=== PATIENT | female | born 1950 | race Hispanic/Latino ===

== ENCOUNTER → 2018-01-01 | Outpatient (CLI) | payer OTHER ==
[~2018-01-01] MED LIST: ASPI-1197 PO; CALC-866 PO; DULO60CA63 PO; GABA-531 PO; GLIM1TAB2 PO; HYDR12.530 PO; METF500T6 PO; METO-408 PO; SIMV40TA5 PO; TIZA2TAB4 PO; VITA400C19 PO; VITAMIN B12 PO
== END | disposition home or self-care (01) ==
LOC: RAH 08:25
PROVIDERS: ATTEND Internal Medicine Gastroenterology
DX: K76.0 Fatty (change of) liver, not elsewhere classified (principal); K43.9 Ventral hernia without obstruction or gangrene; Z90.49 Acquired absence of other specified parts of digestive tract
CPT/HCPCS: 76700

== ENCOUNTER 2018-01-03 06:54 | Day surgery (SDC) | payer OTHER ==
[~2018-01-03] VITALS: Ht 162.6 cm; Wt 93.7 kg
[~2018-01-03 06:54] MED LIST changes: +SODIUM CHLORIDE 0.9% 1000ML 1,000 ML IV ONE
[2018-01-03 07:27] VITALS: BP 144/60
[2018-01-03] MEDS ORDERED: PROPOFOL 10 MG/ML 20ML VIAL IV ONE (07:52)
== END 2018-01-03 08:45 | disposition home or self-care (01) ==
LOC: DAH 06:54
PROVIDERS: ATTEND Internal Medicine Gastroenterology
DX: K22.2 Esophageal obstruction (principal); Z98.84 Bariatric surgery status; Z68.37 Body mass index [BMI] 37.0-37.9, adult; Z79.84 Long term (current) use of oral hypoglycemic drugs; Z79.899 Other long term (current) drug therapy; F50.89 Other specified eating disorder; Z86.010 Personal history of colon polyps; I10 Essential (primary) hypertension; E78.5 Hyperlipidemia, unspecified; E11.9 Type 2 diabetes mellitus without complications; I63.9 Cerebral infarction, unspecified; M19.90 Unspecified osteoarthritis, unspecified site; F32.9 Major depressive disorder, single episode, unspecified; G47.33 Obstructive sleep apnea (adult) (pediatric); I25.10 Atherosclerotic heart disease of native coronary artery without angina pectoris; Z98.890 Other specified postprocedural states; Z90.49 Acquired absence of other specified parts of digestive tract; Z90.710 Acquired absence of both cervix and uterus; Z82.49 Family history of ischemic heart disease and other diseases of the circulatory system; Z83.3 Family history of diabetes mellitus; Z80.0 Family history of malignant neoplasm of digestive organs; Z95.1 Presence of aortocoronary bypass graft
CPT/HCPCS: 43248; 82948 ×2; 93005; A4606; J2704; J7030

== ENCOUNTER → 2018-01-18 | Outpatient (CLI) | payer OTHER ==
[~2018-01-18] MED LIST changes: -SODIUM CHLORIDE 0.9% 1000ML 1,000 ML IV ONE
== END | disposition home or self-care (01) ==
LOC: EDSTATUS 08:50 → OIH 08:57
PROVIDERS: ATTEND Internal Medicine Cardiovascular Disease
DX: I71.4 Abdominal aortic aneurysm, without rupture (principal)
CPT/HCPCS: 93978

== ENCOUNTER 2019-01-07 07:18 | Observation (INO) | payer OTHER ==
[2019-01-04 12:41] LABS: BASOPHILS % (AUTO) 0.8 % (0.0-5.0); HEMATOCRIT 42.9 % (36-48); LYMPHOCYTES % (AUTO) 33.6 % (21.0-51.0); MEAN CORPUSCULAR HEMOGLOBIN 29.5 pg (27.0-33.0); MEAN CORPUSCULAR HGB CONC 34.1 g/dL (32.0-36.0); MEAN CORPUSCULAR VOLUME 86.5 fL (79-99); MONOCYTES % (AUTO) 7.6 % (3.0-13.0); PLATELET COUNT (AUTO) 223 K/uL (130-400); RED BLOOD CELL COUNT(AUTO) 4.96 MIL/uL (4.00-5.50); WHITE BLOOD COUNT (AUTO) 7.6 K/uL (4.8-10.8)
[2019-01-04 12:48] VITALS: BP 142/78
[2019-01-04 13:18] LABS: CREATININE 0.7 mg/dL (0.5-1.5); POTASSIUM 4.8 mmol/L (3.5-5.1)
[2019-01-04] MEDS: CEFAZOLIN SODIUM 1 GM VIAL IVP SCH (13:45)
[2019-01-05] MEDS: CEFAZOLIN SODIUM 1 GM VIAL IVP SCH (13:45)
[2019-01-06] MEDS: CEFAZOLIN SODIUM 1 GM VIAL IVP SCH (13:45)
[~2019-01-07] VITALS: Ht 165.1 cm; Wt 94.3 kg
[2019-01-07] VITALS (27 sets, daily range): BP systolic 107–148; BP diastolic 56–78
[~2019-01-07 07:18] MED LIST changes: +CA C1TAB74 PO; -CALC-866 PO; +CYAN1TAB44 PO; +FERS325 PO; +LOSA25TA41 PO; +METF-444 PO; -METF500T6 PO; -TIZA2TAB4 PO; -VITAMIN B12 PO
[2019-01-07] MEDS ORDERED: SODIUM CHLORIDE 0.9% 1000ML 1,000 ML IV ONE ×2 (08:02→08:03)
[2019-01-07] MEDS ORDERED: LIDOCAINE PF 2% 5ML ABBOJECT ONE ×2 (08:29→08:30)
[2019-01-07] MEDS ORDERED: ROCURONIUM 10MG/1ML SYR 10 MG/ML ML ONE (08:29)
[2019-01-07] MEDS ORDERED: SUCCINYLCHOLINE 200MG/10ML SYR ONE (08:29)
[2019-01-07] MEDS ORDERED: DEXAMETHASONE SOD PHOSPHATE 10MG/ML 1ML VIAL ONE (08:29)
[2019-01-07] MEDS ORDERED: MIDAZOLAM HCL 1 MG/ML 2ML VIAL ONE (08:29)
[2019-01-07] MEDS ORDERED: ONDANSETRON HCL 4 MG/2 ML VIAL ONE (08:29)
[2019-01-07] MEDS ORDERED: NEOSTIGMINE 5MG/5ML SYR IV ONE (08:29)
[2019-01-07] MEDS ORDERED: FENTANYL CITRATE PF 50 MCG/1 ML 2ML VIAL ONE (08:29)
[2019-01-07] MEDS ORDERED: GLYCOPYRROLATE 1 MG/5 ML SYRINGE ONE (08:29)
[2019-01-07] MEDS ORDERED: PROPOFOL 10 MG/ML 20ML VIAL IV ONE (08:29)
[2019-01-07] MEDS ORDERED: EPHEDRINE SULFATE 50 MG/ML AMPULE ONE (09:34)
[2019-01-07] MEDS ORDERED: PHENYLEPHRINE HCL 10 MG/ML 1ML VIAL IV ONE (09:51)
[2019-01-07] MEDS ORDERED: MEPERIDINE-PF 25 MG/ML SYG ONE ×3 (10:13→10:44)
[2019-01-07] MEDS ORDERED: PROMETHAZINE HCL 25 MG/ML 1ML AMPULE IM ONE (10:44)
[2019-01-07] MEDS ORDERED: KETOROLAC TROMETHAMINE 30MG/ML ONE (11:10)
[2019-01-07] MEDS: CEFAZOLIN SODIUM 1 GM VIAL IVP SCH ×3 (12:57→22:47)
[2019-01-07] MEDS ORDERED: ONDANSETRON HCL 4 MG/2 ML VIAL IVP PRN (13:15)
[2019-01-07] MEDS ORDERED: MORPHINE SULFATE 4 MG/1ML SYG IV PRN (13:15)
[2019-01-07] MEDS: LACTATED RINGERS 1000ML 1,000 ML IV SCH (14:33)
[2019-01-07] MEDS: METFORMIN HCL 500 MG TABLET PO SCH (16:23)
[2019-01-07] MEDS: GABAPENTIN 300 MG CAPSULE PO SCH (20:18)
[2019-01-07] MEDS: VITAMIN E 400 UNIT CAPSULE PO SCH (20:18)
[2019-01-07] MEDS: ACETAMINOPHEN-CODEINE 300/30MG TAB PO PRN (20:19)
[2019-01-07] MEDS: SIMVASTATIN 20 MG TABLET PO SCH (20:23)
[2019-01-07] MEDS: **HM** TOPROL XL 25MG PO SCH (20:25)
[2019-01-08] VITALS (8 sets, daily range): BP systolic 86–133; BP diastolic 58–77
[2019-01-08] MEDS: ACETAMINOPHEN-CODEINE 300/30MG TAB PO PRN ×4 (01:48→21:44)
[2019-01-08] MEDS: LACTATED RINGERS 1000ML 1,000 ML IV SCH ×3 (01:49→17:31)
[2019-01-08 04:54] LABS: HEMATOCRIT 36.7 % (36-48); MEAN CORPUSCULAR HEMOGLOBIN 29.4 pg (27.0-33.0); MEAN CORPUSCULAR HGB CONC 33.7 g/dL (32.0-36.0); MEAN CORPUSCULAR VOLUME 87.2 fL (79-99); PLATELET COUNT (AUTO) 182 K/uL (130-400); RED CELL DISTRIBUTION WIDTH 14.2 % (11.0-15.5); WHITE BLOOD COUNT (AUTO) 9.8 K/uL (4.8-10.8)
[2019-01-08] MEDS: **HM** TOPROL XL 25MG PO SCH ×3 (09:00→20:08)
[2019-01-08] MEDS: [UNRECOGNIZED DRUG - OTHER] PO SCH ×2 (09:00→14:39)
[2019-01-08] MEDS: VITAMIN E 400 UNIT CAPSULE PO SCH ×2 (09:00→20:08)
[2019-01-08] MEDS: VIT B12 FOLIC ACID PO SCH ×3 (09:00→14:39)
[2019-01-08] MEDS: METFORMIN HCL 500 MG TABLET PO SCH ×2 (09:02→17:17)
[2019-01-08] MEDS: DULOXETINE HCL 30 MG CAP PO SCH (09:02)
[2019-01-08] MEDS: HYDROCHLOROTHIAZIDE 25 MG TABLET PO SCH (09:03)
[2019-01-08] MEDS: ASPIRIN 81MG TAB.CHEW PO SCH (09:03)
[2019-01-08] MEDS: GABAPENTIN 300 MG CAPSULE PO SCH ×2 (09:03→20:08)
[2019-01-08] MEDS: GLIMEPIRIDE 2 MG TABLET PO SCH (09:03)
[2019-01-08] MEDS: LOSARTAN 50 MG TABLET PO SCH (09:05)
--- NOTE | 2019-01-08 12:20 | NUR ---
Pt. up ambulating in hallway. Pt. appears in stable condition.
[2019-01-08] MEDS ORDERED: HYDRALAZINE HCL 20 MG/ML VIAL IV SCH (13:41)
[2019-01-08] MEDS ORDERED: HYDRALAZINE HCL 20 MG/ML VIAL ONE (13:43)
[2019-01-08] MEDS: CEFAZOLIN SODIUM 1 GM VIAL IVP SCH (13:45)
--- NOTE | 2019-01-08 14:15 | NUR ---
Paged Dr. Eugenio Biggs regarding A-Fib with RVR.
[2019-01-08 15:54] LABS: CREATININE 0.8 mg/dL (0.5-1.5); MAGNESIUM 1.4 mg/dL (1.80-2.40); POTASSIUM 3.6 mmol/L (3.5-5.1)
[2019-01-08] MEDS ORDERED: DILTIAZEM HCL 5 MG/ML 5 ML VIAL IVP ONE (16:00)
--- NOTE | 2019-01-08 16:00 | NUR ---
IA IA DONE PRIOR TO TRANSFER TO 2ND FLOOR- PT FLUSHED STATES HAS CHEST PRESSURE- HR > 120 , AFIB; PATIENT LIVES Leyda JEFFRIES, USES FLIP, NO MUNIR, NO PROV, PLAN IS HOME Addendum: 01/08/19 at 1841 by CARTER FELICIANO RN Amended: Links added.
[2019-01-08] MEDS ORDERED: DILTIAZEM HCL 5 MG/ML 10 ML VIAL IV ONE ×2 (16:04→16:30)
[2019-01-08] MEDS ORDERED: DILTIAZEM 125MG+100 ML NS 125 ML IV SCH (16:30)
--- NOTE | 2019-01-08 16:47 | NUR ---
Called report to AYANA Osborne to receive pt, pt. to be transferred to room 221, room still being cleaned. Notified Dylon pt. to be started on Cardizem drip once she's down there.
--- NOTE | 2019-01-08 17:25 | NUR ---
Pt. transferred to room 221, care endorsed to Dylon PIÑA, notified him pt. to start Cardizem drip.
[2019-01-08] MEDS: SIMVASTATIN 20 MG TABLET PO SCH (20:08)
[2019-01-09 04:36] VITALS: BP 117/75
[2019-01-09] MEDS: ACETAMINOPHEN-CODEINE 300/30MG TAB PO PRN (06:09)
[2019-01-09 07:52] VITALS: BP 107/52
[2019-01-09] MEDS: HYDROCHLOROTHIAZIDE 25 MG TABLET PO SCH (09:00)
[2019-01-09] MEDS: LOSARTAN 50 MG TABLET PO SCH (09:00)
[2019-01-09] MEDS: METFORMIN HCL 500 MG TABLET PO SCH ×2 (09:07→16:58)
[2019-01-09] MEDS: DULOXETINE HCL 30 MG CAP PO SCH (09:07)
[2019-01-09] MEDS: GABAPENTIN 300 MG CAPSULE PO SCH (09:07)
[2019-01-09] MEDS: ASPIRIN 81MG TAB.CHEW PO SCH (09:07)
[2019-01-09] MEDS: GLIMEPIRIDE 2 MG TABLET PO SCH (09:09)
[2019-01-09] MEDS: LACTATED RINGERS 1000ML 1,000 ML IV SCH (09:19)
[2019-01-09] MEDS: VIT B12 FOLIC ACID PO SCH (09:20)
[2019-01-09] MEDS: **HM** TOPROL XL 25MG PO SCH (09:20)
[2019-01-09] MEDS: [UNRECOGNIZED DRUG - OTHER] PO SCH (09:20)
[2019-01-09] MEDS: VITAMIN E 400 UNIT CAPSULE PO SCH (09:20)
[2019-01-09 11:28] VITALS: BP 121/57
[2019-01-09] MEDS: INSULIN HUMULIN R 100 UNIT/ML 3ML SQ SCH ×2 (11:30→16:30)
[2019-01-09] MEDS ORDERED: DEXTROSE 50%-WATER 50 ML DISP.SYRIN IV PRN (11:30)
[2019-01-09] MEDS ORDERED: GLUCAGON 1MG KIT 1 MG ML IM PRN (11:30)
[2019-01-09 16:39] VITALS: BP 118/57
--- NOTE | 2019-01-09 18:00 | NUR ---
DISCHARGE ATTEMPTED TO INITIATE DISCHARGE INSTRUCTIONS W/PT. NEEDED TO ROUND W/DR PALENCIA ON ANOTHER PT. TELE COURTNEY REMOVED. IV DISCONTINUED @ THIS TIME. WILL RESUME DISCHARGE INSTRUCTIONS WHEN DONE ROUNDING W/.
--- NOTE | 2019-01-09 18:25 | NUR ---
DISCHARGE VERBAL & WRITTEN DISCHARGE INSTRUCTIONS REVIEWED & GIVEN TO PT. QUESTIONS ENCOURAGED & CLARIFIED. PROPER CARE & ACTIVITY AFTER INCISIONAL HERNIA REPAIR REVIEWED. PT TO CALL DR CACERES'S OFFICE TOMORROW TO SETUP HOME HEALTH. PRESCRIBED MEDICATIONS REVIEWED W/PT. PER PT, ALREADY NOTIFIED PRESCRIPTION IS READY TO BE PICKED UP. F/U APPT INFO REVIEWED. PT TO GATHER PERSONAL BELONGINGS. WILL NOTIFY STAFF WHEN READY TO BE TAKEN TO PRIVATE VEHICLE.
--- NOTE | 2019-01-09 19:00 | NUR ---
DISCHARGE PT TAKEN TO PRIVATE VEHICLE VIA WC BY Franky FRANCOIS PCP, ACCOMPANIED BY FAMILY. NO DISTRESS NOTED.
[2019-01-09 19:30] VITALS: BP 129/56
== END 2019-01-09 18:50 | disposition home or self-care (01) ==
LOC: DAH 07:18 → 4AH 07:19 → 2DH 01-08 17:54
PROVIDERS: ADMIT Surgery; ATTEND Surgery
DX: K43.2 Incisional hernia without obstruction or gangrene (principal); L72.3 Sebaceous cyst; I10 Essential (primary) hypertension; I25.10 Atherosclerotic heart disease of native coronary artery without angina pectoris; I48.91 Unspecified atrial fibrillation; K81.0 Acute cholecystitis; Z79.82 Long term (current) use of aspirin; Z79.84 Long term (current) use of oral hypoglycemic drugs; Z79.899 Other long term (current) drug therapy; Z95.1 Presence of aortocoronary bypass graft
CPT/HCPCS: 36415 ×2; 49560; 49568; 80048 ×2; 82948 ×9; 83735; 85025; 85027; 88302; 88305; 93005 ×2; 96365; 96366 ×2; 96372; 96375 ×3; 96376; A4218 ×2; A4452; A4649 ×2; A4930; C1781; G0378 ×60; J0330; J0360; J0690 ×3; J1100; J1885; J2001 ×2; J2175 ×3; J2250; J2270; J2370; J2405; J2550; J2704; J2710; J3010; J3490 ×6; J7030 ×2; J7120 ×4; 96374

== ENCOUNTER → 2019-04-29 | Outpatient (CLI) | payer OTHER ==
[~2019-04-29] MED LIST changes: -FERS325 PO
== END | disposition home or self-care (01) ==
LOC: RAH 14:17
PROVIDERS: ATTEND Family Medicine
DX: Z12.31 Encounter for screening mammogram for malignant neoplasm of breast (principal)
CPT/HCPCS: 77067

== ENCOUNTER → 2021-04-28 | Outpatient (CLI) | payer OTHER ==
[~2021-04-28] MED LIST changes: -DULO60CA63 PO; +DULO60CA64 PO; +GLIM1TAB18 PO; -GLIM1TAB2 PO; +SIMV-46 PO; -SIMV40TA5 PO; +VITA-395 PO; -VITA400C19 PO
== END | disposition home or self-care (01) ==
LOC: RAH 14:56
PROVIDERS: ATTEND Family Medicine
DX: Z12.31 Encounter for screening mammogram for malignant neoplasm of breast (principal)
CPT/HCPCS: 77067

== ENCOUNTER → 2023-11-24 | Outpatient (CLI) | payer OTHER | END | disposition home or self-care (01) | LOC: RAH 11:31 | PROVIDERS: ATTEND Family Medicine | DX: Z12.31 Encounter for screening mammogram for malignant neoplasm of breast (principal) | CPT/HCPCS: 77067 ==